=== PATIENT | female | born 1965 | race American Indian/Alaskan Native ===

== ENCOUNTER 2018-11-07 12:31 | Inpatient (IN) | payer OTHER ==
--- NOTE | 2018-11-07 12:49 | Emergency Department Report ---
Blank Doc - Documentation Documentation: This is a 52-year-old female that presents with left sided chest pain with rad iation to left upper arm. Denies any SOB. This initial assessment/diagnostic orders/clinical plan/treatment(s) is/are subject to change based on patient's health status, clinical progression and re- assessment by fellow clinical providers in the ED. Further treatment and workup at subsequent clinical providers discretion. Patient/guardians urged not to elope from the ED as their condition may be serious if not clinically assessed and managed. Initial orders include: 1- Patient sent to [facility] for further evaluation and treatment 2- Labs 3- EKG 4- UA 5- CXR
--- NOTE | 2018-11-07 13:15 | XRay Report ---
AP CHEST: HISTORY: chest pain AP view of the chest demonstrates a normal mediastinal and cardiac contour with clear lungs and normal bony and soft tissue structures. IMPRESSION: Unremarkable AP chest.
[2018-11-07 13:39] LABS: Basophils % (Auto) 0.7 % (0.0-1.8); Eosinophils # (Auto) 0.1 K/mm3 (0.0-0.4); Eosinophils % (Auto) 1.2 % (0.0-4.3); Hematocrit 38.6 % (30.3-42.9); Hemoglobin 12.8 gm/dl (10.1-14.3); Lymphocytes # (Auto) 1.5 K/mm3 (1.2-5.4); Lymphocytes % (Auto) 22.7 % (13.4-35.0); Mean Corpuscular HGB Conc 33 % (30-34); Mean Corpuscular Volume 87 fl (79-97); Monocytes # (Auto) 0.8 K/mm3 (0.0-0.8); Monocytes % (Auto) 11.5 % (0.0-7.3); Platelet Count 392 K/mm3 (140-440); Red Blood Count 4.41 M/mm3 (3.65-5.03); Red Cell Distribution Width 13.9 % (13.2-15.2)
[2018-11-07 13:50] LABS: INR 0.95 (0.87-1.13)
[2018-11-07 13:51] LABS: Partial Thromboplastin Time 29.7 Sec. (24.2-36.6)
[2018-11-07 14:04] LABS: Alanine Aminotransferase 14 units/L (7-56); Albumin 3.9 g/dL (3.9-5); BUN/Creatinine Ratio 19; Blood Urea Nitrogen 13 mg/dL (7-17); Calcium 9.1 mg/dL (8.4-10.2); Hemolysis Index 10
--- NOTE | 2018-11-07 15:30 | Emergency Department Report ---
ED Chest Pain HPI - General Chief Complaint: Chest Pain Stated Complaint: LT ARM PAIN Time Seen by Provider: 11/07/18 12:40 Source: patient Mode of arrival: Ambulatory Limitations: No Limitations - History of Present Illness Initial Comments: 52-year-old -[place] female presents to the emergency department with complaint of a two-week history of some left arm pain with occasional left-sided chest pain twinges. She says that the arm pain is mostly towards the upper inner arm and it worsens with any movement or lifting. She denies any shortness of breath, nausea, vomiting or diaphoresis. She has not taken anything for her symptoms prior to presentation. She does not have a primary care physician. She is a tobacco smoker but denies any illicit drug use. No recent travel or sick contacts at home. Severity scale (0 -10): 9 - Related Data Home Medications Medication Instructions Recorded Confirmed Last Taken No Known Home Medications [No 11/07/18 11/07/18 Unknown Reported Home Medications] Allergies Allergy/AdvReac Type Severity Reaction Status Date / Time No Known Allergies Allergy Unverified 11/07/18 12:36 Heart Score - HEART Score History: Slightly suspicious EKG: Normal Age: 45-65 Risk factors: 1-2 risk factors Troponin: < normal limit HEART Score: 2 - Critical Actions Critical Actions: 0-3 pts:0.9-1.7%risk of adverse cardiac event.Candidate for discharge ED Review of Systems ROS: Stated complaint: LT ARM PAIN Other details as noted in HPI Comment: All other systems reviewed and negative Constitutional: denies: chills, fever Eyes: denies: eye pain, vision change ENT: denies: ear pain, throat pain Respiratory: denies: cough, shortness of breath Cardiovascular: chest pain. denies: palpitations Gastrointestinal: denies: abdominal pain, vomiting Genitourinary: denies: dysuria, frequency Musculoskeletal: arthralgia, myalgia. denies: back pain Skin: denies: rash, lesions Neurological: denies: headache, weakness ED Past Medical Hx - Past Medical History Previous Medical History?: No - Surgical History Past Surgical History?: Yes Additional Surgical History: Ectopic - Social History Smoking Status: Current Every Day Smoker Substance Use Type: None - Medications Home Medications: Home Medications Medication Instructions Recorded Confirmed Last Taken Type No Known Home Medications [No 11/07/18 11/07/18 Unknown History Reported Home Medications] ED Physical Exam - General Limitations: No Limitations - Other Other exam information: GENERAL: The patient is well-developed well-nourished. HEENT: Normocephalic. Atraumatic. Patient has moist mucous membranes. EYES: Extraocular motions are intact. Pupils are equal and reactive to light bilaterally. NECK: Supple. Trachea is midline. CHEST/LUNGS: Clear to auscultation. There is no respiratory distress noted. C hest pain is not reproducible to palpation of the chest wall. HEART/CARDIOVASCULAR: Regular. There is no tachycardia. There is no obvious murmur. ABDOMEN: Abdomen is soft, nontender. Patient has normal bowel sounds. There is no abdominal distention. SKIN: Skin is warm and dry. NEURO: The patient is awake, alert, and oriented. The patient is cooperative. The patient has no focal neurologic deficits. The patient has normal speech. MUSCULOSKELETAL: There is some reproducible tenderness to palpation to the left upper extremity to the proximal medial portion of the arm. There is no limitati on range of motion. There is no evidence of acute injury. ED Course Vital Signs 11/07/18 11/07/18 11/07/18 12:48 14:00 14:15 Temperature 98.1 F Pulse Rate 83 68 Respiratory 18 Rate Blood Pressure 195/98 O2 Sat by Pulse 100 100 100 Oximetry 11/07/18 11/07/18 11/07/18 14:31 14:45 15:03 Temperature Pulse Rate 64 71 70 Respiratory 18 21 21 Rate Blood Pressure 205/102 O2 Sat by Pulse 100 100 100 Oximetry 11/07/18 11/07/18 11/07/18 15:30 16:25 16:30 Temperature Pulse Rate 65 74 62 Respiratory 23 13 23 Rate Blood Pressure 185/106 190/113 193/106 O2 Sat by Pulse 99 100 100 Oximetry 11/07/18 11/07/18 11/07/18 17:00 17:30 17:36 Temperature Pulse Rate 57 L 59 L Respiratory 20 20 16 Rate Blood Pressure 186/104 192/108 O2 Sat by Pulse 100 99 Oximetry 11/07/18 17:37 Temperature Pulse Rate Respiratory 16 Rate Blood Pressure O2 Sat by Pulse Oximetry DADA score - Dada Score Age > 65: (0) No Aspirin use within the Past 7 Days: (0) No 3 or more CAD Risk Factors: (0) No 2 or more Angina events in past 24 hrs: (1) Yes Known CAD with more than 50% Stenosis: (0) No Elevated Cardiac Markers: (0) No ST Deviation Greater than 0.5mm: (0) No DADA Score: 1 ED Medical Decision Making - Lab Data Result diagrams: 11/07/18 13:25 11/07/18 13:25 - EKG Data -: EKG Interpreted by Me EKG shows normal: sinus rhythm, axis, intervals, QRS complexes, ST-T waves Rate: normal - EKG Data When compared to previous EKG there are: previous EKG unavailable Interpretation: normal EKG - Radiology Data Radiology results: report reviewed, image reviewed interpreted by me: Chest x-ray does not show any pneumothorax, pleural effusion, pneumonia or obvious focal consolidation. PROCEDURE: VL VENOUS DUPLEX UE LT TECHNIQUE: Grayscale, color flow and Doppler waveform imaging of the superficial and deep venous structures of the left upper extremities was performed. HISTORY: LUE pain COMPARISONS: None FINDINGS: There is demonstration of normal compression and phasic flow in the visualized portions of the left internal jugular vein and left subclavian vein. There is demonstration of normal compression and normal phasic flow in the left axillary, brachial and basilic veins. There is demonstration of normal compression of the left ulnar, radial and cephalic veins. IMPRESSION: 1. No ultrasound evidence of superficial or deep venous thrombosis left upper extremity. This document is electronically signed by Aida Barger MD., November 07 2018 04:51:30 PM ET Transcribed By: ED Dictated By: AIDA BARGER MD Electronically Authenticated By: AIDA BARGER MD Signed Date/Time: 11/07/18 1653 - Medical Decision Making Patient presents to the emergency department with left upper extremity arm pain and some sharp twinges of left-sided chest pain. She is a tobacco smoker. She presents with very elevated blood pressure with a systolic over 200. EKG does not show any signs of ST elevation MN, ischemia or dysrhythmia. Labs thus far been unremarkable. She had a left upper extremity venous Doppler that was negative for any acute DVT. Patient continues to have some discomfort and has the risk factors of tobacco use and hypertension. She was given aspirin to protect the heart, Toradol for her pain and labetalol for blood pressure. She will be admitted to the hospital for further cardiac workup and evaluation and was accepted for admission by the hospitalist, Dr. Damon. - Differential Diagnosis MN, DVT, Muscle strain/sprain Critical Care Time: No Critical care attestation.: If time is entered above; I have spent that time in minutes in the direct care of this critically ill patient, excluding procedure time. ED Disposition Clinical Impression: Acute chest pain, Hypertensive urgency, Left arm pain Disposition: OP ADMIT IP TO THIS HOSP Is pt being admited?: Yes Does the pt Need Aspirin: Yes Condition: Stable Instructions: Chest Pain (ED) Referrals: CAMRYN ORTIZ MD [Primary Care Provider] - 3-5 Days
[2018-11-07 15:46] LABS: Bilirubin,Urine NEG (Negative); Blood,Urine NEG (Negative); Color,Urine Yellow (Yellow); Protein,Urine <15 mg/dL mg/dL (Negative); Urobilinogen,Urine < 2.0 mg/dL (<2.0)
[2018-11-07] MEDS ORDERED: TORADOL IM ONE (15:58)
[2018-11-07] MEDS ORDERED: TORADOL IV ONE (16:19)
[2018-11-07] MEDS ORDERED: NORMODYNE IV ONE (16:19)
--- NOTE | 2018-11-07 16:53 | Vascular Lab Report ---
PROCEDURE: VL VENOUS DUPLEX UE LT TECHNIQUE: Grayscale, color flow and Doppler waveform imaging of the superficial and deep venous str uctures of the left upper extremities was performed. HISTORY: LUE pain COMPARISONS: None FINDINGS: There is demonstration of normal compression and phasic flow in the visualized portions of the left i nternal jugular vein and left subclavian vein. There is demonstration of normal compression and normal phasic flow in the left axillary, brachial an d basilic veins. There is demonstration of normal compression of the left ulnar, radial and cephalic veins. IMPRESSION: 1. No ultrasound evidence of superficial or deep venous thrombosis left upper extremity. This document is electronically signed by Aida Barger MD., November 07 2018 04:51:30 PM ET
[2018-11-07] MEDS ORDERED: BABY ASPIRIN PO ONE (17:21)
[2018-11-07] MEDS ORDERED: PERCOCET 5/325 PO PRN (18:51)
[2018-11-07] MEDS ORDERED: TYLENOL PO PRN (18:51)
[2018-11-07] MEDS ORDERED: SODIUM CHLORIDE FLUSH SYRINGE 10 ML IV PRN (18:51)
[2018-11-07] MEDS ORDERED: REGLAN IV PRN (18:51)
[2018-11-07] MEDS ORDERED: ZOFRAN IV PRN (18:51)
[2018-11-07] MEDS ORDERED: DILAUDID IV PRN (18:51)
--- NOTE | 2018-11-07 18:51 | History and Physical Report ---
History of Present Illness Date of examination: 11/07/18 Date of admission: 11/07/18 17:21 Chief complaint: Chest pain for 2weeks History of present illness: 52-year-old -[place] female presents to the emergency department with complaint of a two-week history of some left arm pain with occasional left-sided chest pain twinges. She says that the arm pain is mostly towards the upper inner arm and it worsens with any movement or lifting. She denies any shortness of breath, nausea, vomiting or diaphoresis. She has not taken anything for her symptoms prior to presentation. She does not have a primary care physician. She is a tobacco smoker but denies any illicit drug use. No recent travel or sick contacts at home. Past Medical History Previous Medical History?: No Surgical History Past Surgical History?: Yes Additional Surgical History: Ectopic preg Social History Smoking Status: Current Every Day Smoker Substance Use Type: None Medications Padilla month with Dr. Rangel on the [facility] Spine Zosyn and Medications: Home Medications Medication Instructions Recorded Confirmed Last Taken Type No Known Home Medications [No 11/07/18 11/07/18 Unknown History Reported Home Medications] Review of Systems ROS: Stated complaint: LT ARM PAIN Other details as noted in HPI Comment: All other systems reviewed and negative Constitutional: denies: chills, fever Eyes: denies: eye pain, vision change ENT: denies: ear pain, throat pain Respiratory: denies: cough, shortness of breath Cardiovascular: chest pain. denies: palpitations Gastrointestinal: denies: abdominal pain, vomiting Genitourinary: denies: dysuria, frequency Musculoskeletal: arthralgia, myalgia. denies: back pain Skin: denies: rash, lesions Neurological: denies: headache, weakness Medications and Allergies Allergies Allergy/AdvReac Type Severity Reaction Status Date / Time No Known Allergies Allergy Unverified 11/07/18 12:36 Home Medications Medication Instructions Recorded Confirmed Last Taken Type No Known Home Medications [No 11/07/18 11/07/18 Unknown History Reported Home Medications] Exam - Constitutional Vitals: Temp Pulse Resp BP Pulse Ox 98.1 F 63 21 170/96 99 11/07/18 12:48 11/07/18 18:30 11/07/18 18:30 11/07/18 18:30 11/07/18 18:30 General appearance: Present: no acute distress, well-nourished - EENT Eyes: Present: PERRL ENT: hearing intact, clear oral mucosa - Neck Neck: Present: supple, normal ROM - Respiratory Respiratory effort: normal Respiratory: bilateral: CTA - Cardiovascular Heart rate: 78 Rhythm: regular Heart Sounds: Present: S1 & S2. Absent: rub, click - Extremities Extremities: no ischemia, pulses intact, pulses symmetrical, No edema Peripheral Pulses: within normal limits - Abdominal General gastrointestinal: Present: soft, non-tender, non-distended, normal bowel sounds Female genitourinary: Present: normal - Rectal Rectal Exam: deferred - Integumentary Integumentary: Present: clear, warm, dry - Musculoskeletal Musculoskeletal: gait normal, strength equal bilaterally - Psychiatric Psychiatric: appropriate mood/affect, intact judgment & insight - Neurologic Neurologic: CNII-XII intact, moves all extremities - Allied Health Allied health notes reviewed: nursing, case management Results - Labs CBC & Chem 7: 11/07/18 13:25 11/08/18 05:24 Labs: Laboratory Last Values WBC 6.7 K/mm3 (4.5-11.0) 11/07/18 13:25 RBC 4.41 M/mm3 (3.65-5.03) 11/07/18 13:25 Hgb 12.8 gm/dl (10.1-14.3) 11/07/18 13:25 Hct 38.6 % (30.3-42.9) 11/07/18 13:25 MCV 87 fl (79-97) 11/07/18 13:25 MCH 29 pg (28-32) 11/07/18 13:25 MCHC 33 % (30-34) 11/07/18 13:25 RDW 13.9 % (13.2-15.2) 11/07/18 13:25 Plt Count 392 K/mm3 (140-440) 11/07/18 13:25 Lymph % (Auto) 22.7 % (13.4-35.0) 11/07/18 13:25 [place] % (Auto) 11.5 % (0.0-7.3) H 11/07/18 13:25 Eos % (Auto) 1.2 % (0.0-4.3) 11/07/18 13:25 Baso % (Auto) 0.7 % (0.0-1.8) 11/07/18 13:25 Lymph # 1.5 K/mm3 (1.2-5.4) 11/07/18 13:25 [place] # 0.8 K/mm3 (0.0-0.8) 11/07/18 13:25 Eos # 0.1 K/mm3 (0.0-0.4) 11/07/18 13:25 Baso # 0.0 K/mm3 (0.0-0.1) 11/07/18 13:25 Seg Neutrophils % 63.9 % (40.0-70.0) 11/07/18 13:25 Seg Neutrophils # 4.3 K/mm3 (1.8-7.7) 11/07/18 13:25 PT 13.2 Sec. (12.2-14.9) 11/07/18 13:25 INR 0.95 (0.87-1.13) 11/07/18 13:25 APTT 29.7 Sec. (24.2-36.6) 11/07/18 13:25 Sodium 140 mmol/L (137-145) 11/07/18 13:25 Potassium 4.0 mmol/L (3.6-5.0) 11/07/18 13:25 Chloride 103.2 mmol/L (98-107) 11/07/18 13:25 Carbon Dioxide 26 mmol/L (22-30) 11/07/18 13:25 Anion Gap 15 mmol/L 11/07/18 13:25 BUN 13 mg/dL (7-17) 11/07/18 13:25 Creatinine 0.7 mg/dL (0.7-1.2) 11/07/18 13:25 Estimated GFR > 60 ml/min 11/07/18 13:25 BUN/Creatinine Ratio 19 % 11/07/18 13:25 Glucose 85 mg/dL (65-100) 11/07/18 13:25 Calcium 9.1 mg/dL (8.4-10.2) 11/07/18 13:25 Total Bilirubin 0.40 mg/dL (0.1-1.2) 11/07/18 13:25 AST 21 units/L (5-40) 11/07/18 13:25 ALT 14 units/L (7-56) 11/07/18 13:25 Alkaline Phosphatase 71 units/L (35-129) 11/07/18 13:25 Troponin T < 0.010 ng/mL (0.00-0.029) 11/07/18 15:20 Total Protein 7.1 g/dL (6.3-8.2) 11/07/18 13:25 Albumin 3.9 g/dL (3.9-5) 11/07/18 13:25 Albumin/Globulin Ratio 1.2 % 11/07/18 13:25 Urine Color Yellow (Yellow) 11/07/18 15:08 Urine Turbidity Clear (Clear) 11/07/18 15:08 Urine pH 7.0 (5.0-7.0) 11/07/18 15:08 Ur Specific [place] 1.011 (1.003-1.030) 11/07/18 15:08 Urine Protein <15 mg/dl mg/dL (Negative) 11/07/18 15:08 Urine Glucose (UA) 50 mg/dL (Negative) 11/07/18 15:08 Urine Ketones Neg mg/dL (Negative) 11/07/18 15:08 Urine Blood Neg (Negative) 11/07/18 15:08 Urine Nitrite Neg (Negative) 11/07/18 15:08 Urine Bilirubin Neg (Negative) 11/07/18 15:08 Urine Urobilinogen < 2.0 mg/dL (<2.0) 11/07/18 15:08 Ur Leukocyte Esterase Neg (Negative) 11/07/18 15:08 Urine WBC (Auto) 2.0 /HPF (0.0-6.0) 11/07/18 15:08 Urine RBC (Auto) 3.0 /HPF (0.0-6.0) 11/07/18 15:08 U Epithel Cells (Auto) 1.0 /HPF (0-13.0) 11/07/18 15:08 Short CBC 11/07/18 Range/Units 13:25 WBC 6.7 (4.5-11.0) K/mm3 Hgb 12.8 (10.1-14.3) gm/dl Hct 38.6 (30.3-42.9) % Plt Count 392 (140-440) K/mm3 BMP 11/07/18 11/08/18 13:25 05:24 Sodium 140 143 Potassium 4.0 3.8 Chloride 103.2 105.7 Carbon Dioxide 26 24 BUN 13 11 Creatinine 0.7 0.4 L Glucose 85 90 Calcium 9.1 9.1 Cardiac Enzymes 11/07/18 11/07/18 Range/Units 13:25 15:20 Troponin T < 0.010 < 0.010 (0.00-0.029) ng/mL Liver Function 11/07/18 11/08/18 Range/Units 13:25 05:24 Total Bilirubin 0.40 0.80 (0.1-1.2) mg/dL AST 21 20 (5-40) units/L ALT 14 12 (7-56) units/L Alkaline Phosphatase 71 69 (35-129) units/L Albumin 3.9 3.6 L (3.9-5) g/dL Urine 11/07/18 Range/Units 15:08 Urine Color Yellow (Yellow) Urine pH 7.0 (5.0-7.0) Ur Specific [place] 1.011 (1.003-1.030) Urine Protein <15 mg/dl (Negative) mg/dL Urine Glucose (UA) 50 (Negative) mg/dL - Imaging and Cardiology EKG: report reviewed Chest x-ray: report reviewed (NAF) Imaging and Cardiology: Upper ext duplex scan IMPRESSION: 1. No ultrasound evidence of superficial or deep venous thrombosis left upper extremity Assessment and Plan Advance Directives: Yes (Full code) VTE prophylaxis?: Chemical Plan of care discussed with patient/family: Yes - Patient Problems (1) Hypertensive urgency Current Visit: Yes Status: Acute Plan to address problem: Was not on any BP meds before Initiated on Antihypertensives (2) Acute chest pain Current Visit: Yes Status: Acute Plan to address problem: Chest pain w/u Lexiscan in AM Serial troponins (3) Left arm pain Current Visit: Yes Status: Acute Plan to address problem: DVT/SVT ruled out Non specific Symtomatic treatmenr (4) DVT prophylaxis Current Visit: Yes Status: Acute Plan to address problem: On lovenox and GI prophylaxis
[2018-11-07] MEDS ORDERED: APRESOLINE IV PRN (18:57)
[2018-11-07] MEDS ORDERED: COREG ONE (19:23)
[2018-11-07] MEDS ORDERED: COZAAR ONE (19:24)
[2018-11-07] MEDS: COREG PO SCH ×2 (19:26→22:28)
[2018-11-07] MEDS: COZAAR PO SCH (19:27)
[2018-11-07] MEDS ORDERED: DILAUDID ONE (19:44)
[2018-11-07] MEDS ORDERED: APRESOLINE ONE (19:44)
[2018-11-07] MEDS: PEPCID IV SCH (22:30)
[2018-11-07] MEDS: SODIUM CHLORIDE FLUSH SYRINGE 10 ML IV SCH (22:31)
[2018-11-08 06:36] LABS: Alanine Aminotransferase 12 units/L (7-56); Albumin 3.6 g/dL (3.9-5); BUN/Creatinine Ratio 28; Blood Urea Nitrogen 11 mg/dL (7-17); Calcium 9.1 mg/dL (8.4-10.2); Hemolysis Index 5
[2018-11-08] MEDS ORDERED: LEXISCAN IV ONE (08:45)
[2018-11-08] MEDS: COZAAR PO SCH (11:10)
[2018-11-08] MEDS: SODIUM CHLORIDE FLUSH SYRINGE 10 ML IV SCH (11:10)
[2018-11-08] MEDS: COREG PO SCH (11:10)
[2018-11-08] MEDS: PEPCID IV SCH (11:10)
--- NOTE | 2018-11-08 15:39 | Treadmill Report ---
PROCEDURE: Nuclear stress test. REFERRING PHYSICIAN: Dr. Damon. PROTOCOL: The patient was brought to the stress lab in a postabsorptive state, given 10 mCi of technetium 99m at rest. The patient underwent rest imaging. The patient underwent Lexiscan stress test. At peak stress, the patient was given 26 mCi of technetium 99m. Shortly thereafter, the patient underwent stress imaging. Raw imaging reveals mild GI artifact, no significant motion artifact. SPECT image examined carefully in horizontal long axis, vertical long axis, short axis views. There is normal homogenous uptake of radioisotope in all reported segments. No evidence of a significant fixed or reversible perfusion defects suggestive of prior infarction or ischemia. Gated wall motion reveals normal systolic thickening, calculated ejection fraction of 64%. No TID. CONCLUSIONS: 1. Normal myocardial perfusion scan without evidence of active ischemia or prior infarction. 2. Normal left ventricular systolic performance without evidence of transient ischemic dilatation or stress-induced segmental wall motion analysis. JOB# [id number] SURYA/KRISTIN
--- NOTE | 2018-11-08 15:51 | Discharge Summary ---
Providers - Providers Date of Admission: 11/07/18 17:21 Date of discharge: 11/08/18 Attending physician: RAKAN BAPTISTE Primary care physician: [employer] Hospitalization Condition: Fair Hospital course: Patient is 52-year-old with no significant medical history. She presented with chest pain. Patient was seen and evaluated in ED. Troponin was normal. Initial BP was 195/98. patient was given Hydralazine, and Aspirin. She was admitted to rule out acute coronary syndrome and to control blood pressure. Stress test was negative. Chest pain secondary to musculoskeletal pain. BP improved on meds. Patient subsequently discharged home on Ibuprofen. Disposition: DC- TO HOME OR SELFCARE - Discharge Diagnoses (1) Musculoskeletal chest pain Status: Acute (2) Acute chest pain Status: Acute (3) Hypertensive urgency Status: Acute Core Measure Documentation - Palliative Care Palliative Care/ Comfort Measures: Not Applicable - Core Measures Any of the following diagnoses?: none Exam - Constitutional Vitals: Temp Pulse Resp BP Pulse Ox 98.1 F 59 L 16 157/82 100 11/08/18 12:45 11/08/18 12:45 11/08/18 12:45 11/08/18 12:45 11/08/18 12:45 Plan Activity: advance as tolerated Diet: low fat, low cholesterol, low salt Additional Instructions: 1. Follow-up with primary care physician or [facility] in 1 week. Prescriptions: Hydralazine HCl 50 mg PO Q8H #90 tablet Ibuprofen 400 mg PO Q6H PRN #20 tablet PRN Reason: Pain , Severe (7-10) amLODIPine [Norvasc] 5 mg PO QDAY 30 Days tablet
[2018-11-08 16:12] VITALS: BP 156/83
[2018-11-08] MEDS ORDERED: NORVASC PO SCH (18:00)
[2018-11-08] MEDS ORDERED: LOVENOX SUB-Q SCH (22:00)
== END 2018-11-08 17:03 | disposition home or self-care (01) | DRG 305 ==
LOC: ED 12:31 → 4A 17:21
PROVIDERS: ADMIT Internal Medicine; ATTEND Internal Medicine
DX: I16.0 Hypertensive urgency (principal); M79.602 Pain in left arm; R07.9 Chest pain, unspecified; F17.200 Nicotine dependence, unspecified, uncomplicated
CPT/HCPCS: 36415; 71046; 78452; 80053; 81001; 83036; 84484; 85025; 85610; 85730; 93005; 93010; 93017; G0378; A9502; J0360; J1170; J1885; J2785

== ENCOUNTER 2021-02-16 16:43 | Emergency (ER) | payer OTHER | END 2021-02-16 23:30 | LOC: ED 16:43 | DX: Z53.21 Procedure and treatment not carried out due to patient leaving prior to being seen by health care provider (principal) ==